=== PATIENT | male | born 1965 | race Asian ===

== ENCOUNTER → 2017-10-23 | Outpatient (CLI) | payer OTHER ==
[~2017-10-23] VITALS: Ht 172.7 cm; Wt 81.6 kg
[~2017-10-23] MED LIST: CENTRUM SILVER1 EAC2 PO; VITAMINC500 PO
--- NOTE | ~2017-10-23 | S ---
[facility] [place] [address] SURGICAL PATH RPT PROCEDURE Name: DERICK GONZALES Room #: REG CLI M.R.#: [id number] Admission: 10/23/17 Date of : 69 Discharge: Report #: [id number] Path Case #: [id number] PATHOLOGY REPORT COLLECTION DATE: 10/23/2017 RECEIVED DATE: 10/23/2017 SUBMITTING PHYS: Dr. Mohsen Smith OTHER PHYS: LYRIC Prasad SPECIMEN(S) RECEIVED: A.Polyp at cecum B.Polyp at ascending C.Polyp at hepatic flexure D.Polyp at transverse colon * * * * * * * * * * * * FINAL DIAGNOSIS: A. Polyp, at cecum, endoscopic biopsy: - Tubular adenoma. - Negative for high-grade dysplasia. B. Polyp, at ascending colon, endoscopic biopsy: - Tubular adenoma. - Negative for high-grade dysplasia. C. Polyp, hepatic flexure, endoscopic biopsy: - Hyperplastic polyp. - Negative for dysplasia. D. Polyp, at transverse colon, endoscopic biopsy: - Tubular adenoma. - Negative for high-grade dysplasia. (IUV:mgr; 10/26/2017) PATHOLOGIST: Julia Saeed M.D. REPORT ELECTRONICALLY SIGNED BY: Julia Saeed M.D. DATE/TIME: 10/26/2017 14:00 * * * * * * * * * * * * GROSS PATHOLOGY: A. Received in formalin labeled "Derick Gonzales, polyp at cecum," is a segment of thayer soft tissue measuring 0.4 cm in maximum dimension. The specimen is submitted entirely in cassette A1. B. Received in formalin labeled "Derick Gonzales, polyp at ascending colon," is a segment of thayer soft tissue measuring 0.3 cm in maximum dimension. The specimen is submitted entirely in cassette B1. C. Received in formalin labeled "Derick Gonzales, hepatic flexure polyp," is a segment of thayer soft tissue measuring 0.4 cm in maximum dimension. The specimen is submitted entirely in cassette C1. [address] [address] SURGICAL PATH RPT PROCEDURE Name: DERICK GONZALES Room #: REG CL M.R.#: [id number] Admission: 10/23/17 Date of : 69 Discharge: Report #: [id number] Path Case #: [id number] D. Received in formalin labeled "Derick Gonzales, polyp at transverse colon," is a segment of thayer soft tissue measuring 0.2 cm in maximum dimension. The specimen is submitted entirely in cassette D1. (TSD; 10/23/2017) CLINICAL HISTORY: None provided INITIAL CPT CODE(S): A; 38439 B; 65768 C; 87938 D; 50557 Professional services performed by [facility] at [address] [place] [address] Technical services performed by [facility] at [address] [place] [address]., [address], [place] [address]. [facility] [address] [place] [id number] PHONE: [phone] DIRECTOR: Wiley Dixon M.D. * * * END OF REPORT * * *
--- NOTE | ~2017-10-23 | P ---
[facility] [place] [address] PROCEDURE REPORT Name: RICHIE GONZALES Room #: REG [facility].#: [id number] Admission: 10/23/17 Attend Phys: Mohsen Smith MD Discharge: Date of : 69 Report #: [id number] THIS REPORT FOR: //name// CC: Carol Smith DATE OF SERVICE: 10/23/2017 BRIEF HISTORY: The patient is a 52-year-old male for average risk screening colonoscopy. PREOPERATIVE DIAGNOSIS: Average risk screening colonoscopy. POSTOPERATIVE DIAGNOSES: 1. Multiple colon polyps. 2. Mild sigmoid diverticulosis coli. MEDICATIONS: Deep sedation with propofol per anesthesia. SPECIMEN: 1. Diminutive polyp, cecum. 2. Diminutive polyp, ascending colon. 3. Diminutive polyp, hepatic flexure. 4. Diminutive polyp, transverse colon. ESTIMATED BLOOD LOSS: 3 mL. PROCEDURE: Colonoscopy to cecum and terminal ileum with biopsy. FINDINGS: Prior to propofol sedation, procedure of colonoscopy discussed with the patient as well as potential risks and its complications. He indicates he understands and desires to proceed. DESCRIPTION OF PROCEDURE: With the patient in left lateral decubitus position, digital examination was completed which revealed no abnormalities. Subsequently, the [employer] video colonoscope was introduced in the rectum, advanced under direct vision to the cecum. This was done with minimal difficulty. The cecum was identified by the ileocecal valve and the appendiceal orifice. I was able to visualize the distal segment of the terminal ileum, which was inspected and noted to be unremarkable. At that point, scope was withdrawn and careful circumferential views were obtained. Upon slow withdrawal of the scope, the prep was noted to be excellent. The mucosa was within normal limits, normal vascular pattern, normal light reflex. As we withdrew the scope, he was found to have a diminutive polyp in the cecum that was removed by biopsy. Scope was further withdrawn and another diminutive polyp was found in the mid ascending [facility] [address] [place] [address] PROCEDURE REPORT Name: RICHIE GONZALES Room #: REG [facility].#: [id number] Admission: 10/23/17 Attend Phys: Mohsen Smith MD Discharge: Date of : 69 Report #: [id number] colon and another #1 was found in the hepatic flexure. Scope was further withdrawn and another diminutive polyp was seen in the mid transverse colon. All the polyps removed with biopsy forceps. Scope was further withdrawn and no additional neoplastic changes were seen. As we withdrew the scope through the sigmoid colon, he was noted to have mild sigmoid diverticular disease without endoscopic evidence of diverticulitis. Scope was withdrawn in the rectum. Upon retroflexion, no abnormalities were seen. Scope was withdrawn. The patient tolerated procedure well. CONDITION OF THE PATIENT UPON DISCHARGE: Following procedure, the patient drowsy and arousal, will be discharged home when fully ambulatory. INSTRUCTIONS TO THE PATIENT AND FAMILY AT THE TIME OF DISCHARGE: Four diminutive polyps identified and removed as described above. We will follow up on the path report. If 3 or more adenomas, he is to return in 3 years; if only 1 or 2 adenomas, then 5 years would be indicated; if none are adenomas, then 10 years would be indicated. He will return to care of Carol Espino and return to see me as needed. Also, he has high fiber diet for his diverticular disease. Last colonoscopy 8 years ago done for rectal bleeding. Withdrawal time from the cecum was 14 minutes and 47 seconds. <ELECTRONICALLY SIGNED> By: Mohsen Smith MD 10/23/17 [id number] Mohsen Smith MD /nt
== END | disposition home or self-care (01) ==
LOC: GI 08:03
DX: Z12.11 Encounter for screening for malignant neoplasm of colon (principal); K63.5 Polyp of colon; K57.30 Diverticulosis of large intestine without perforation or abscess without bleeding; Z98.890 Other specified postprocedural states
CPT/HCPCS: 62110; 62900

== ENCOUNTER → 2021-01-23 | Outpatient (CLI) | payer OTHER | LOC: SJCVCIMAG 08:42 | PROVIDERS: ATTEND Internal Medicine | DX: I70.1 Atherosclerosis of renal artery (principal); I10 Essential (primary) hypertension; R94.31 Abnormal electrocardiogram [ECG] [EKG]; G47.33 Obstructive sleep apnea (adult) (pediatric) ==